=== PATIENT | female | born 1965 | race Hispanic/Latino ===

== ENCOUNTER → 2016-07-22 | Outpatient (CLI) | payer OTHER ==
[~2016-07-22] MED LIST: AMLO10TA PO; AMLO2.5T PO; ASP81CT PO; CATHETER FLUSH 10 ML SYR IV PRN; CINN1CAP PO; DIGO250T PO; FURO40TA4 PO; IOHEXOL 350 MG/ML 100 ML (OMNIPAQUE 350) VIAL IV ONE; KCL10CCR PO; LIRA0.6P SQ; LISI10TA2 PO; METF500T8 PO; MULT-974 PO; NS 100 ML (IVPB) BAG IV ONE; SIMV40TA4 PO; SOTA120T PO; WRF5T PO; [UNRECOGNIZED DRUG - OTHER] PO
--- NOTE | 2016-07-22 10:57 | Diagnostic Imaging Report ---
PROCEDURE: CT abdomen with and without contrast. TECHNIQUE: Multiple contiguous axial CT images of the abdomen were obtained prior to and after intravenous administration of iodinated contrast. INDICATION: Left lower quadrant pain, bloating, hernia repair. COMPARISON: Compared 04/15/2012. FINDINGS: The visualized lower thorax reveals substantial enlargement of the right atrium. No basilar pleural fluid. There is diffuse integumentary edema. There is distention of the inferior vena cava and hepatic veins with abdominal ascites and free fluid showing no loculation. Some integumentary as well as mesenteric edema and congestion. No free air. The visualized abdominal small and large bowel loops nondilated. The stomach was nondistended. The ingested contrast media revealed no extravasation. There has been repair of the previous full-thickness defect in the left abdominal wall. No rectus sheath hematoma or fluid collection. There is some thinning and bulging of the left paramedian abdominal wall just above the level of the umbilicus but no visualized full-thickness fascial defect. The kidneys were unobstructed. IMPRESSION: Third space fluids with abdominal free fluid, integumentary and mesenteric edema with right atrial enlargement and caval distention. Interval repair of previous full-thickness abdominal wall hernia. There is some mild bulging without full-thickness defect. No bowel, biliary or urinary tract obstruction. No loculated fluid collection or free air. Dictated by: Dictated on workstation # [id number]
== END ==
LOC: RAD 09:49
PROVIDERS: ATTEND Nurse Practitioner Family
DX: R60.1 Generalized edema (principal)
CPT/HCPCS: 74170

== ENCOUNTER → 2016-08-05 | Outpatient (CLI) | payer SELFPAY ==
[~2016-08-05] VITALS: Ht 152.4 cm; Wt 93.4 kg
[~2016-08-05] MED LIST changes: -IOHEXOL 350 MG/ML 100 ML (OMNIPAQUE 350) VIAL IV ONE; -NS 100 ML (IVPB) BAG IV ONE; +REGADENOSON 0.4 MG/5 ML SYR (LEXISCAN) IV ONE
[2016-08-05 13:16] VITALS: BP 110/61
[2016-08-05 13:20] VITALS: BP 120/72
[2016-08-05 13:21] VITALS: BP 114/75
--- NOTE | 2016-08-06 10:31 | ECHOCARDIOGRAPHY REPORT ---
DATE OF SERVICE: 08/05/2016 MEASUREMENTS: 1. Left atrium 4.6. 2. Aortic root 2.6. 3. LV diameter, diastolic, 5.5. 4. IVS thickness, diastolic 1.3. 5. LVPW thickness, diastolic, 1.2. DESCRIPTION: Two-dimensional echocardiography shows a normal global left ventricular systolic function with normal regional wall motion and left ventricular ejection fraction of approximately 60%. There is no significant pericardial effusion. There appears to be moderate enlargement of the right heart. There is some evidence of right ventricular pressure and volume overload. There is no Doppler evidence of significant valvular stenosis. There is no evidence of significant intracardiac shunt on this transthoracic echocardiographic study. The inferior vena cava appears to be moderately dilated. Doppler imaging shows mild to moderate mitral regurgitation and moderate tricuspid regurgitation. Pulmonary artery systolic pressure is estimated to be 25-30 mmHg. CONCLUSIONS: 1. Normal global left ventricular systolic function with an ejection fraction approximately 55%-60%. 2. Mild concentric left ventricular hypertrophy. 3. Mild to moderate enlargement of the left atrium. 4. Moderate enlargement of the right heart. 5. Mild to moderate mitral regurgitation. 6. Moderate tricuspid regurgitation. 7. No evidence of significant valvular stenosis. 8. Pulmonary artery systolic pressure is estimated to be 25-30 mmHg. Job ID: [id number] DocumentID: [id number] Dictated Date: 08/05/2016 17:49:24 Financial Reporting Advisor Date: 08/06/2016 09:22:44 Dictated By: JOCELYN DESOUZA MD, MA, FACP, FACC,
--- NOTE | 2016-08-06 12:33 | STRESS TEST ---
DATE OF SERVICE: 08/05/2016 RESTING AND POST REGADENOSON TECHNETIUM 99M TETROFOSMIN SPECT CT IMAGING ORDERING PHYSICIAN: Dr. Suzy Fowler APRN. PRIMARY PHYSICIAN: Dr. Harper. CLINICAL DIAGNOSIS: Shortness of breath, congestive heart failure, atrial fibrillation, wide complex tachycardia. Baseline images were carried out after injection of 10.29 mCi of [id number]. This was followed by 0.4 mg of regadenoson and 30.6 mCi of technetium 99m-tetrofosmin for stress imaging. The electrocardiogram showed atrial fibrillation throughout the study. A few isolated premature ventricular contractions were seen. She reported some headache following regadenoson infusion, which resolved in a few minutes. Overall, she tolerated the procedure well. Review of images at rest and following stress indicates a transient and/or lateral perfusion defect that is small to moderate in size. Gaited images show normal global left ventricular systolic function with normal regional wall motion. Left ventricular ejection fraction is calculated to be 57%. Left ventricular end diastolic volume is 69 mL. CONCLUSION: 1. This study is indicative of a small to moderate amount of anterolateral ischemia. 2. Normal regional wall motion. 3. Normal global left ventricular systolic function with a calculated ejection fraction of 57%. Job ID: [id number] DocumentID: [id number] Dictated Date: 08/05/2016 16:03:56 [employer] Date: 08/06/2016 08:06:44 Dictated By: JOCELYN DESOUZA MD, MA, FACP, FACC,
== END ==
LOC: CARD 11:50
PROVIDERS: ATTEND Nurse Practitioner Family
DX: I47.2 Ventricular tachycardia (principal); I48.2 Chronic atrial fibrillation
CPT/HCPCS: 78452; 93017; 93306